=== PATIENT | male | born 1985 | race African-American/Black ===

== ENCOUNTER 2021-07-11 20:40 | Emergency (ER) | payer MEDICAID, SELFPAY ==
--- NOTE | ~2021-07-11 | XR_ITS ---
EXAMINATION: XR hand RT min 3V CLINICAL INFORMATION: Laceration COMPARISON: None TECHNIQUE: 3 views of the hand XR/XR hand RT min 3V FINDINGS/IMPRESSION: No fracture or dislocation. Joint spaces are maintained. Few small radiopaque foreign bodies the largest measuring 2 mm noted along the radial aspect of the first MCP joint. Soft tissues are unremarkable.
[2021-07-11 20:53] VITALS: BP 133/78; PULSE 82; RESP 16; TEMP 36.8; O2SAT 98; BMI 22.4
--- NOTE | 2021-07-11 21:38 | ED.WOUNDLAC ---
HPI - Wound/Laceration General Chief Complaint: Wound/Laceration Stated Complaint: right finger laceration Time Seen by Provider: 07/11/21 21:04 Source: patient Mode of arrival: ambulatory Limitations: no limitations History of Present Illness HPI narrative: This is a 35-year-old male no significant medical history presenting to the emergency department with complaints of small laceration to right 2nd digit status post breaking a glass table with his right hand. He tells me does not feel like there is anything in his hand. He reports he can move the area with no issues. No foreign body sensation. No numbness or tingling. Bleeding well controlled not on blood thinners. This happened just prior to his arrival. Patient up to date on a tetanus shot. Tells me this was accidental. Onset (ago): hour(s) (2) Location: other (right second digit ) Place: home Patient tetanus UTD: Yes Context: accidental Associated symptoms: none Related Data Previous Rx's Medication Instructions Recorded doxycycline hyclate 100 mg capsule 100 mg PO BID 10 Days #20 cap 07/11/21 Allergies Allergy/AdvReac Type Severity Reaction Status Date / Time No Known Allergies Allergy Unverified 01/19/20 15:45 Review of Systems Review of Systems: Constitutional : No Fever, No Chills, Cardiovascular : No Chest Pain, No SOB Respiratory : No Dyspnea Gastrointestinal : No abdominal pain Musculoskeletal : No Joint Swelling Skin : No rash, positive skin laceration Neuro : No Weakness, No Numbness Psych : No SI/HI Yes all other systems are reviewed and are negative PMFSH Past Medical History Attestation statement: The following information was validated with the patient. Source: old records reviewed and nursing notes reviewed Social History Social History Advance Directives: No Physical Exam Vital Signs: Vital Signs: Last Vital Signs Temp 98.3 F 07/11/21 20:53 Pulse 82 07/11/21 20:53 Resp 16 07/11/21 20:53 BP 133/78 07/11/21 20:53 Pulse Ox 98 07/11/21 20:53 BMI result Body Mass Index 22.4 VSS Appearance: Alert.? Oriented X3.? No acute distress.? Head: Normocephalic, atraumatic, no step-offs or deformities Eyes: Pupils equal, round and reactive to light.? ENT: Pharynx normal.? Neck: Normal inspection.? Neck supple.? CVS: Normal heart rate and rhythm.? Pulses normal.? Respiratory: No respiratory distress.? Breath sounds normal.? Abdomen: Soft and nontender.? Skin: Skin warm and dry.? Normal skin color.? Normal skin turgor.?+ 2 cm superficial laceration to the dorsal aspect of right 2nd digit. No evidence signs of foreign bodies. Extremities: No lower extremity edema.? No calf ttp. 5/5 strength to bilateral upper and lower extremities Back: No midline tenderness, no C-spine tenderness, full range of motion, no CVA tenderness bilaterally Neuro: Oriented X 3.? No motor deficit.? No sensory deficit. CN 2-12 intact Course Reevaluation(s) Reevaluation #1: Dermabond was applied to superficial laceration. Bleeding well controlled. He will be placed in a finger splint for 1 day to ensure that he does not bend his finger to open up the laceration. At this time patient will be discharged home with doxycycline p.o. x7 days for prophylaxis. Comfortable discharge home with PCP follow-up. Given worrisome signs and symptoms and when to return. Time: 21:42 MDM - Wound/Laceration MDM Narrative Medical decision making narrative: 2139 35 yo m presents w/ an accidental laceration to the right 2nd digit. Cut himself on glass. Up-to-date on tetanus shot. No foreign body sensation. Bleeding well controlled. Not on blood thinners. Physical examination significant for 2 cm superficial laceration to the dorsal aspect of right 2nd digit. No evidence signs of foreign bodies. Plan at this time is to obtain basic imaging of the right hand to rule out evident foreign bodies. Medical Records Attestation: I reviewed the patient's medical records. Lab Data Attestation: I reviewed the patient's lab results. Critical Care Time Critical Care Time Critical Care Time: No Discharge Plan Discharge Clinical Impression: Laceration Patient Disposition: Home, Self-Care Instructions: Laceration (DC) Additional Instructions: Take your medications as prescribed. If you were prescribed antibiotics today, it is important that you take your medication to their entirety, do not skip any doses, do not finish them early. Follow-up with your primary care provider this week. Return to the emergency department with new or worsening symptoms. Such as fevers, chills, chest pain, shortness of breath, nausea, vomiting, dizziness, headache, vision changes, lethargy In case of emergency call 911 Prescriptions: New doxycycline hyclate 100 mg capsule 100 mg PO BID 10 Days Qty: 20 0RF Referrals: Valery Lugo DO [Primary Care Provider] - 2 days Stand Alone Forms: Work/School Release
== END 2021-07-11 21:56 | disposition home or self-care (01) ==
PROVIDERS: Emergency Provider Emergency Medicine Emergency Medical Services; PCP Family Medicine
DX: S61.210A Laceration without foreign body of right index finger without damage to nail, initial encounter (principal); W25.XXXA Contact with sharp glass, initial encounter; Y93.9 Activity, unspecified; Y92.009 Unspecified place in unspecified non-institutional (private) residence as the place of occurrence of the external cause; Y99.9 Unspecified external cause status
CPT/HCPCS: 12001; 73130; 99283; 99284

== ENCOUNTER 2021-12-14 03:18 | Emergency (ER) | payer MEDICAID, SELFPAY ==
[2021-12-14 03:29] VITALS: BP 125/92; PULSE 82; RESP 18; TEMP 36.4; O2SAT 96; BMI 23.3
== END 2021-12-14 04:38 | disposition left against medical advice (07) ==
LOC: HO.ED 04:37
PROVIDERS: Emergency Provider Emergency Medicine
DX: T26.12XA Burn of cornea and conjunctival sac, left eye, initial encounter (principal); T26.11XA Burn of cornea and conjunctival sac, right eye, initial encounter; X08.8XXA Exposure to other specified smoke, fire and flames, initial encounter; Y93.89 Activity, other specified; Y92.9 Unspecified place or not applicable; Y99.9 Unspecified external cause status
CPT/HCPCS: 99281

== ENCOUNTER 2022-03-25 23:07 | Emergency (ER) | payer MEDICAID, SELFPAY ==
--- NOTE | ~2022-03-25 | XR_ITS ---
EXAMINATION: XR SHOULDER, RIGHT CLINICAL INFORMATION: Trauma. COMPARISON: None TECHNIQUE: 3 views. of the right shoulder. FINDINGS: The bones and soft tissues are normal. No fracture. Glenohumeral and acromioclavicular alignment is anatomic with normal joint space. No abnormal soft tissue calcifications. XR/XR shoulder RT min 2V IMPRESSION: Normal right shoulder.
[2022-03-25 23:10] VITALS: BP 129/91; PULSE 92; RESP 18; TEMP 36.4; O2SAT 96; BMI 23.3
[2022-03-25] MEDS: Ibuprofen 600 MG TABLET PO (23:18)
--- NOTE | 2022-03-25 23:35 | ED_ITS ---
HPI - Extremity Problem General Chief complaint: Extremity Injury, Upper Stated complaint: Fall, arm inj Time Seen by Provider: 03/25/22 23:13 Source: patient Mode of arrival: ambulatory Limitations: no limitations History of Present Illness HPI Narrative: patient comes to the emergency room complaining right shoulder pain. Prior to arrival, patient was raising his significant other down the stairs, patient acc identally slipped and fell backwards landing on his right shoulder. Patient has mild epistaxis, controlled prior to arrival. Patient did not hit his head, did not lose consciousness. Related Data Previous Rx's Medication Instructions Recorded doxycycline hyclate 100 mg capsule 100 mg PO BID 10 days #20 caps 07/11/21 cyclobenzaprine 10 mg tablet 10 mg PO TID PRN muscle spasm #6 03/26/22 tabs ibuprofen 600 mg tablet 600 mg PO TID PRN fever or pain 03/26/22 #20 tabs Allergies Allergy/AdvReac Type Severity Reaction Status Date / Time No Known Allergies Allergy Verified 12/14/21 03:28 Review of Systems Review of Systems: Constitutional : No Weight loss, No Fever, No Chills, No Night Sweats, No Fatigue, No Malaise ENT/Mouth : No Hearing loss, No Ear Pain, No Nasal Congestion, No Sinus Pain, No Hoarseness, No sore throat, No Rhinorrhea, No Swallowing Difficulty Eyes: No Eye Pain, No Swelling, No Redness, No Foreign Body, No Discharge, No Vision Changes Cardiovascular : No Chest Pain, No SOB, No Dyspnea on Exertion, No Orthopnea, No Edema, No Palpitations Respiratory : No Cough, No Sputum, No Wheezing, No Smoke Exposure, No Dyspnea Gastrointestinal : No Nausea, No Vomiting, No Diarrhea, No Constipation, No abdominal Pain, No Hematochezia, No Melena Genitourinary : no irregular bleeding, No Dysuria, No Urinary Frequency, No Hematuria, No Urinary Incontinence, No Urgency, No Flank Pain, No Urinary Flow Changes, No Hesitancy Musculoskeletal : Complaining of right shoulder pain,No Myalgias, No Joint Swelling Skin : No Skin Lesions, No rash Neuro : No Weakness, No Numbness, No Paresthesias, No Loss of Consciousness, No Dizziness, No Headache Psych : No Anxiety/Panic, No Depression, No SI/HI/AH/VH, No Social Issues, Heme/Lymph: No Bruising, No Bleeding,No Lymphadenopathy Endocrine : No Polyuria, No Polydipsia, No Temperature Intolerance PMFSH Social History Social History Advance Directives: No Physical Exam Vital Signs: Vital Signs: Last Vital Signs Temp 97.5 F 03/25/22 23:10 Pulse 92 03/25/22 23:10 Resp 18 03/25/22 23:10 BP 129/91 H 03/25/22 23:10 Pulse Ox 96 03/25/22 23:10 O2 Del Method 03/25/22 23:10 BMI result Body Mass Index 23.3 Const: Other: Appearance: Alert. Oriented X3. No acute distress. Eyes: Pupils equal, round and reactive to light. ENT: Pharynx normal. Neck: Normal inspection. Neck supple. No lymph nodes noted. No crepitus CVS: Normal heart rate and rhythm. Pulses normal. Normal S1 and S2 Respiratory: No respiratory distress. Breath sounds normal. No Wheezing. No rales Abdomen: Soft and nontender. No rigidity. No distention. Skin: Skin warm and dry. Normal skin color. Normal skin turgor. Extremities: No lower extremity edema pain to palpation over the right shoulder anteriorly. No deformity, no swelling, no elbow pain, wrist pain Neuro: Oriented X 3. No motor deficit. No sensory deficit. Moving all extremities. No slurred speech. CN 2 through 12 grossly intact Psych: calm, cooperative, normal affect Course Course Course Narrative: patient was given p.o. ibuprofen in the emergency room. The x-ray report did not cross over. However, it was read as normal, no fr acture. Patient was provided with a sling. Medications Administered Discontinued Medications Generic Name Dose Route Start Last Admin Trade Name Freq PRN Reason Stop Dose Admin Ibuprofen 600 mg 03/25/22 23:15 03/25/22 23:18 Ibuprofen 600 Mg Tablet PO 03/25/22 23:16 600 mg ONCE ONE Administration Discharge Plan Discharge Clinical Impression: Contusion of shoulder Patient Disposition: Home, Self-Care Instructions: Arthralgia (ED) Additional Instructions: Please follow-up with your primary care physician tomorrow. If you have any worsening or new symptoms, please return to the emergency room or call 911 Prescriptions: New cyclobenzaprine 10 mg tablet 10 mg PO TID PRN (Reason: muscle spasm) Qty: 6 0RF Rx Instructions: do not drive for work after taking this medication. ibuprofen 600 mg tablet 600 mg PO TID PRN (Reason: fever or pain) Qty: 20 0RF No Action doxycycline hyclate 100 mg capsule 100 mg PO BID 10 Days Qty: 20 0RF Stand Alone Forms: Work/School Release
== END 2022-03-26 02:29 | disposition home or self-care (01) ==
PROVIDERS: Emergency Provider Emergency Medicine; PCP Family Medicine
DX: S40.011A Contusion of right shoulder, initial encounter (principal); W10.9XXA Fall (on) (from) unspecified stairs and steps, initial encounter; Y93.9 Activity, unspecified; Y92.9 Unspecified place or not applicable; Y99.9 Unspecified external cause status; Z79.899 Other long term (current) drug therapy
CPT/HCPCS: 73030; 99283

== ENCOUNTER 2022-11-25 08:47 | Outpatient (REF) | payer MEDICAID, SELFPAY ==
[2022-11-25 12:36] LABS: Alanine Aminotransferase 12 U/L (0-40); Albumin Level 4.4 g/dL (3.5-5.0); Alkaline Phosphatase 77 U/L (39-117); Aspartate Amino Transferase 23 U/L (5-37); Bilirubin Direct 0.2 mg/dL (0.0-0.5); Bilirubin Total 0.5 mg/dL (0.0-1.0); Total Protein 7.2 g/dL (6.5-8.0)
[2022-11-25 12:52] LABS: HBc Num1 0.11 S/CO (0.00-0.79); HBsAGNum1 0.43 S/CO (0.00-0.99); HIV AB/AG Nonreactive (Nonreactive); HIV Num 1 0.06 S/CO (0.00-0.99); Hepatitis A Antibody IgG Nonreactive (Nonreactive); Hepatitis B Core Antibody Nonreactive (Nonreactive); Hepatitis B Surface Antigen Negative (Negative); ~Hepatitis A Antibody IgG 0.37 S/CO (0.00-0.99); ~Hepatitis B Surface Antibody NONREACTIVE (Nonreactive)
[2022-11-25 12:53] LABS: ~Hepatitis C Antibody Nonreactive (Nonreactive)
[2022-11-26 08:54] LABS: Syphilis Screen Nonreactive (Nonreactive)
[2022-11-27 23:58] LABS: TS Negative Control Passed; TS Panel A 0; TS Panel B 0; TS Positive Control Passed; TSpotTB Negative (Negative)
== END 2022-11-25 08:48 | disposition home or self-care (01) ==
LOC: HO.HHCL 08:47
PROVIDERS: Visit Provider Emergency Medicine
DX: Z11.4 Encounter for screening for human immunodeficiency virus [HIV] (principal); Z11.1 Encounter for screening for respiratory tuberculosis; F11.20 Opioid dependence, uncomplicated
CPT/HCPCS: 36415; 80076; 86481; 86704; 86706; 86708; 86780; 86803; 87340; 87389

== ENCOUNTER 2023-04-10 10:04 | Outpatient (AMB) | payer MEDICAID, SELFPAY ==
--- NOTE | 2023-04-10 10:07 | MHC.OFFVIS ---
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 Patient reports he notice the mass on his finger about a year ago. He states feeling pain when making a fist. 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 The patient reports he noticed the mass on his right index finger at the PIP joint about a year ago, in 2021, which had increased in size over time. He claims to have pain when making a closed fist. He is currently not working due to having a new born. PFSH Surgical History (Updated 04/10/23 @ 10:15 by Pasquale Argueta) Hx of appendectomy Social History (Updated 04/10/23 @ 10:16 by Pasquale Argueta) Alcohol intake: current Patient Tobacco Use Status: Current everyday Tobacco user Current occupational status: employed Current occupation: [employer]./ right hand dominant Review of Systems Const All systems reviewed & are unremarkable except as noted in HPI and below Physical Exam Vital Signs: BMI result Body Mass Index 27.5 Const General: cooperative and no acute distress Orientation/consciousness: patient oriented x3 Resp Effort & Inspection: normal respiratory effort and able to speak in complete sentences Cardio Peripheral pulses: Peripheral pulses 2+ throughout Skin General skin exam: no rashes or lesions noted Neuro General: patient oriented x3 Extrem Other: Right index finger: Ganglion cyst located over the dorsal aspect of the PIP. Able to make a full fist and perform finger extension. Sensation intact. Capillary refill is brisk. Assessment & Plan Assessment & Plan (1) Ganglion cyst of finger of right hand: Comment: Right index finger Code(s): M67.441 - Ganglion, right hand Plan Mr. Murphy is a 37-year-old right hand dominant male who presents in the office today, as a new patient, for an evaluation of a right index finger mass. The patient reports he noticed the mass on his right index finger at the PIP joint about a year ago, in 2021, which had increased in size over time. He claims to have pain when making a closed fist. He is currently not working due to having a new born. I discussed the role of conservative treatment verses surgical intervention. The patient would like to move forward with surgical intervention for the removal of a mucoid cyst of the right index finger. Due to Dr. Thomas being on the leave the patient will have to return for his preoperative appointment. Follow up will be with Dr. Thomas once she returns from leave, or sooner if needed. Patient Instructions: Scribed for Toshia Jaquez PA-C by Meenu Lea clinical medical transcriptionist, on 04/10/2023 at 10:06 am, EST. Coding Level of Care Code New Pt Level 4 (02825) Diagnoses Ganglion cyst of finger of right hand M67.441
[2023-04-10 10:13] VITALS: BMI 27.5
== END 2023-04-10 11:09 | disposition home or self-care (01) ==
PROVIDERS: PCP Family Medicine; Visit Provider Physician Assistant
DX: M67.441 Ganglion, right hand (principal)
CPT/HCPCS: 99204

== ENCOUNTER → 2023-04-10 10:04 | Outpatient (BNVA) | payer MEDICAID, SELFPAY | PROVIDERS: PCP Family Medicine; Visit Provider Physician Assistant | DX: M67.441 Ganglion, right hand (principal) | CPT/HCPCS: 99212 ==

== ENCOUNTER → 2023-06-03 08:34 | Outpatient (BNVA) | payer MEDICAID, SELFPAY | PROVIDERS: PCP Family Medicine; Visit Provider Orthopaedic Surgery ==

== ENCOUNTER → 2023-06-08 12:07 | Day surgery (SDC) | payer MEDICAID, SELFPAY ==
--- NOTE | 2023-06-08 13:21 | PC.NURSE ---
Patient in preop. Expressed that if he wont be going until 3pm, he will need to reschedule. Per Dr Thomas, case to be cancelled. Nursing work note written for patient per request. Dr. Thomas aware.
== END ==
PROVIDERS: PCP Family Medicine; Visit Provider Orthopaedic Surgery
DX: M67.441 Ganglion, right hand (principal); Z53.29 Procedure and treatment not carried out because of patient's decision for other reasons
CPT/HCPCS: J0171

== ENCOUNTER 2024-02-03 09:23 | Outpatient (REF) | payer MEDICAID, SELFPAY ==
[2024-02-03 11:05] LABS: MANUAL DIFF FLAG NO
[2024-02-03 11:11] LABS: Basophils Absolute Auto 0.1 X10*3/uL (0.0-0.2); Eosinophils Absolute Auto 0.1 X10*3/uL (0.0-0.4); Eosinophils Percent Auto 1.8 % (0-4); Hematocrit 40.8 % (42.0-52.0); Imm Gran Abs Auto 0.03 X10*3/uL (0.00-0.03); Imm Gran Pct Auto 0.5 % (0.0-0.4); Lymphocytes Absolute Auto 1.2 X10*3/uL (1.2-4.9); Lymphocytes Percent Auto 19.9 % (20-40); Mean Corpuscular HGB Conc 34.3 g/dl (31.0-36.0); Mean Corpuscular Hemoglobin 30.9 pg (27.0-33.0); Mean Corpuscular Volume 90.1 fL (80.0-98.0); Mean Platelet Volume 9.9 fL (9.4-12.4); Monocytes Absolute Auto 0.7 X10*3/uL (0.1-1.2); Monocytes Percent Auto 11.3 % (2-11); Neutrophils Absolute Auto 4.1 x10*3/uL (2.0-8.3); Neutrophils Percent Auto 65.5 % (45-73); Platelet Count 211 X10*3/uL (160-400); Red Blood Count 4.53 X10*6/uL (4.60-5.80); Red Cell Distribution Width 13.3 % (11.0-16.0); White Blood Count 6.2 X10*3/uL (4.8-10.8)
[2024-02-03 11:28] LABS: Alanine Aminotransferase 92 U/L (0-40); Albumin Level 4.2 g/dL (3.5-5.0); Alkaline Phosphatase 92 U/L (39-117); Anion Gap 13 (12-20); Aspartate Amino Transferase 184 U/L (5-37); Bilirubin Total 1.2 mg/dL (0.0-1.0); Blood Urea Nitrogen 10 mg/dL (9-16); Calcium 9.2 mg/dL (8.4-10.2); Carbon Dioxide 25 mmol/L (22-29); Chloride 103 mmol/L (96-108); Estimated Glomerular Filt Rate > 60; Glucose Random 149 mg/dL (60-115); Potassium 3.4 mmol/L (3.3-5.1); Sodium 138 mmol/L (135-145)
== END 2024-02-03 09:24 | disposition home or self-care (01) ==
LOC: HO.HHCL 09:23
PROVIDERS: Visit Provider Family Medicine
DX: F10.20 Alcohol dependence, uncomplicated (principal)
CPT/HCPCS: 36415; 80053; 85025